=== PATIENT | female | born 1960 | race Caucasian/White ===

== ENCOUNTER 2016-03-17 15:15 | Emergency (ER) | payer OTHER ==
[2016-03-17 15:30] VITALS: TEMP 98.2; BMI 30.5
[2016-03-17 15:59] LABS: BLOOD UREA NITROGEN 15 MG/DL (7-17); CALC CORRECTED 9.2 MG/DL (8.4-10.2); CALCIUM 9.1 MG/DL (8.4-10.2); CALCULATED OSMOLALITY 266 MOs/Kg (270-290); CHLORIDE 99 mEq/L (98-107); GLUCOSE 195 MG/DL (70-99); SODIUM LEVEL 135 mEq/L (137-146); TOTAL PROTEIN 7.2 G/DL (6.3-8.2)
[2016-03-17 16:09] LABS: LEUKOCYTES/URINE NEG (NEGATIVE); NITRITE/URINE NEG (NEGATIVE); RBC/URINE 0-2 (0-5); URINE OCCULT BLOOD NEG (NEG/TRACE); WBC/URINE 0-2 (0-5)
[2016-03-17 17:00] LABS: AUTOMATED EOSINOPHIL 4.5 % (0-5); MPV 8.3 fL (7.4-10.4)
[2016-03-17 17:02] LABS: AUTOMATED BASOPHIL 0.6 % (0-2); AUTOMATED LYMPH 40.5 % (17-44); AUTOMATED MONOCYTE 6.5 % (3-10); AUTOMATED NEUTROPHIL 47.9 % (45-76)
--- NOTE | 2016-03-17 17:21 | EDPRACDOC ---
<Brigitte Rojas N - Last Filed: 03/17/16 17:56> - General Information Information Source: Patient - History of Present Illness Onset: YESTERDAY Exact Onset of Symptoms: Unknown HPI: PT PRESENTS TODAY STATING SUDDEN ONSET OF DIZZINESS AND LAW THAT BEGAN YESTERDAY. PT STATES SHE "JUST DIDN'T FEEL RIGHT". PT STATES THAT TODAY SHE WENT TO WORK AND WAS UNABLE TO "GET ALL MY WORDS OUT, LIKE I KNEW WHAT THINGS WERE CALLED BUT I COULDN'T GET IT OUT". STATES SHE "JUST DOESN'T FEEL LIKE HERSELF". MILD LAW. DENIES FEVER, BLURRED VISION, CP, SHOB, ABD PAIN, N/V/D, DYSURIA. NO APPARENT DISTRESS. Symptoms Started: Reports: Suddenly Symptoms Description: Constant Symptoms: Reports: Difficult speech, Imbalance, Vertigo Symptom Severity: Reports: Unable to performs ADL's Associated signs and symptoms:: Reports: Headache <OsvaldoFlor K - Last Filed: 03/17/16 18:06> - General Information Chief Complaint: Neuro Symptoms/Deficits Stated Complaint: DIZZY; CONFUSION Time Seen by Provider: 03/17/16 16:16 Home Medications: Home Medications Primidone 250 mg PO BID 01/25/13 Roflumilast [Daliresp] 500 mcg PO QAM 01/25/13 Losartan Potassium [Cozaar] 100 mg PO HS 03/06/14 Paroxetine HCl [Paxil] 30 mg PO HS 05/26/14 Clonazepam [Klonopin] 1 mg PO BID PRN 05/27/14 Atorvastatin Calcium [Lipitor] 10 mg PO HS 06/07/14 Biotin 10 mg PO DAILY 06/26/14 Cetirizine HCl [Zyrtec] 10 mg PO HS 06/26/14 Multivitamin [Multiple Vitamins] 1 tab PO DAILY 06/26/14 Albuterol Sulfate [Proair Hfa] 2 puff INH Q4H PRN 10/12/14 L.acidoph & Paracasei,B.lactis [Probiotic] 1 cap PO DAILY 10/12/14 Mometasone/Formoterol [Dulera 100 Mcg/5 Mcg Inhaler] 2 puff IH BID 10/12/14 Pantoprazole Sodium [Protonix] 40 mg PO BID #60 tab 10/12/14 Calcium Carbonate [Calcium] 1,200 mg PO DAILY 07/29/15 Cyclobenzaprine HCl [Flexeril] 10 mg PO TID PRN #20 tablet 07/29/15 Insulin Pump Novolog 0 - 65 units SQ .CONTINUOUS 07/29/15 Methocarbamol [Robaxin] 500 mg PO TID PRN 07/29/15 Sumatriptan Succinate [Imitrex] 100 mg PO . DIR PRN 07/29/15 Tramadol HCl [Ultram] 50 mg PO .Q8HRS PRN 07/29/15 Amlodipine [Norvasc] 5 mg PO DAILY 08/05/15 Butalb/Acetamin/Caffeine [Fioricet] 1 each PO Q4-6H #30 tab 03/17/16 Allergies/Adverse Reactions: Allergies Allergy/AdvReac Type Severity Reaction Status Date / Time Cephalosporins Allergy Severe Hives* Verified 08/17/15 06:21 moxifloxacin HCl Allergy Intermediate See Verified 08/17/15 06:21 [From Avelox] Comments adhesive tape Allergy Rash-Locali Verified 08/17/15 06:48 zed ED Past Medical History - History Reviewed Yes Nurses notes reviewed and agree except as marked - Patient Medical History Cardiac History: Reports: Hypertension, Cardiac Catheterization (1995), Hypercholesterolemia. Denies: Coronary Artery Disease Respiratory History: Reports: Asthma GI/ History: Reports: Kidney Stones, Gastroesophageal Reflux, Diverticulosis Musculoskeletal History: Reports: Arthritis (osteo), Osteoarthritis Psychological History: Reports: Anxiety. Denies: Depression, Substance Use Disorder Systemic History: Reports: Diabetes Surgical History: Reports: Cholecystectomy, Cardiac Catheterization (1995), Tonsillectomy/Adnoidectomy, Other () - Family Medical History Reports: Hypertension (maternal grandfather), Diabetes (father), Cardiac Disorders (maternal grandparents with mature onset coronary artery disease.). Denies: Cancer, Stroke - Social Medical History Smoking Status: Former smoker Social History: Denies: Substance Use Disorder <Flor Riley - Last Filed: 03/17/16 18:06> EDM Review of Systems - Review of Systems ROS Negative Except as Marked: Yes All systems reviewed and were negative except as marked Constitutional: No Symptoms Reported Eyes: No Symptoms Reported Ears: No Symptoms Reported Throat: No Symptoms Reported Nose: No Symptoms Reported Respiratory: No Symptoms Reported Cardiovascular: No Symptoms Reported Gastrointestinal: No Symptoms Reported Genitourinary: No Symptoms Reported Neurological: Dizziness, Headache, Speech Difficulty, Mood Changes Musculoskeletal: No Symptoms Reported Integumentary: No Symptoms Reported <Flor Riley - Last Filed: 03/17/16 18:06> - Physical Exam Last recorded Vital Signs: Last Vital Signs Temp 98.2 F 03/17/16 15:27 Pulse 94 03/17/16 16:10 Resp 18 03/17/16 16:10 BP 186/88 H 03/17/16 16:10 Pulse Ox 96 03/17/16 16:10 Oxygen Pulse Oxygen Saturation 96 O2 Device Room Air Oxygen Flow Rate Fraction of Inspired Oxygen ( FIO2) <RojasBrigitte henderson Lauro - Last Filed: 03/17/16 17:56> - Physical Exam Constitutional: Alert (Awake), No apparent distress Oriented to: Time, Person, Place Last recorded Vital Signs: Last Vital Signs Temp 98.2 F 03/17/16 15:27 Pulse 94 03/17/16 16:10 Resp 18 03/17/16 16:10 BP 186/88 H 03/17/16 16:10 Pulse Ox 96 03/17/16 16:10 Oxygen Pulse Oxygen Saturation 96 O2 Device Room Air Oxygen Flow Rate Fraction of Inspired Oxygen ( FIO2) - HEENT Head: Normal Eye Exam: Normal (PERRL; EOMI; RED REFLEX NOTED; NO NYSTAGMUS) Oropharynx: Normal Tympanic Membrane: Normal ENT EAC: Normal Nose: No Symptoms Reported Neck: Normal, Denies Pain, Midline - Respiratory/Cardiovascular Respiratory: Normal - CTA Cardiovascular: Normal - GI Palpation: Normal Tenderness: Non tender - Musculoskeletal Back: Normal Extremities: Normal - Integumentary Skin: Normal Lymphatics: Normal - Neurologic Cerebellar: Normal Mood Description: Normal Thought: Coherent Perception: Normal <Flor Riley - Last Filed: 03/17/16 18:06> - Results 03/17/16 16:50 03/17/16 15:30 WBC 8.0 xk/uL (3.8-10.8) 03/17/16 16:50 RBC 4.29 xM/uL (4.20-5.40) 03/17/16 16:50 Hgb 13.3 g/dL (12.0-16.0) 03/17/16 16:50 Hct 39.2 % (36-47) 03/17/16 16:50 MCV 91 fL (81-99) 03/17/16 16:50 MCH 30.9 pg (27-32) 03/17/16 16:50 MCHC 33.8 g/dl (33-36) 03/17/16 16:50 RDW 12.9 % (11.5-14.5) 03/17/16 16:50 Plt Count 270 xk/uL (130-400) 03/17/16 16:50 MPV 8.3 fL (7.4-10.4) 03/17/16 16:50 Neut % (Auto) 47.9 % (45-76) 03/17/16 16:50 Lymph % (Auto) 40.5 % (17-44) 03/17/16 16:50 [place] % (Auto) 6.5 % (3-10) 03/17/16 16:50 Eos % (Auto) 4.5 % (0-5) 03/17/16 16:50 Baso % (Auto) 0.6 % (0-2) 03/17/16 16:50 Absolute Neuts (auto) 3.76 xk/uL (1.7-8.2) 03/17/16 16:50 Absolute Lymphs (auto) 3.20 xk/uL (0.65-4.75) 03/17/16 16:50 Sodium 135 mEq/L (137-146) L 03/17/16 15:30 Potassium 4.5 mEq/L (3.5-5.1) 03/17/16 15:30 Chloride 99 mEq/L (98-107) 03/17/16 15:30 Carbon Dioxide 27 mMOL/L (22-33) 03/17/16 15:30 Anion Gap 14 mEq/L (8-16) 03/17/16 15:30 BUN 15 MG/DL (7-17) 03/17/16 15:30 Creatinine 0.70 MG/DL (0.52-1.04) 03/17/16 15:30 Estimated GFR (MDRD) > 60 mL/min (>=60) 03/17/16 15:30 Glucose 195 MG/DL (70-99) H 03/17/16 15:30 Calculated Osmolality 266 MOs/Kg (270-290) L 03/17/16 15:30 Calcium 9.1 MG/DL (8.4-10.2) 03/17/16 15:30 Corrected Calcium 9.2 MG/DL (8.4-10.2) 03/17/16 15:30 Total Bilirubin 0.6 MG/DL (0.2-1.3) 03/17/16 15:30 AST 34 IU/L (14-36) 03/17/16 15:30 ALT 30 IU/L (9-52) 03/17/16 15:30 Alkaline Phosphatase 129 IU/L (38-126) H 03/17/16 15:30 Total Protein 7.2 G/DL (6.3-8.2) 03/17/16 15:30 Albumin 3.9 G/DL (3.5-5.0) 03/17/16 15:30 Free T4 1.04 ng/dL (0.78-2.19) 03/17/16 15:30 Free T3 3.71 pg/mL (2.77-5.27) 03/17/16 15:30 Urine Color Yellow 03/17/16 15:30 Urine Clarity Clear 03/17/16 15:30 Urine pH 5.0 (5.0-8.0) 03/17/16 15:30 Ur Specific [place] 1.010 (1.003-1.035) 03/17/16 15:30 Urine Protein Neg (NEG/TRACE) 03/17/16 15:30 Urine Glucose (UA) Trace (NEGATIVE) 03/17/16 15:30 Urine Ketones Neg (NEGATIVE) 03/17/16 15:30 Urine Occult Blood Neg (NEG/TRACE) 03/17/16 15:30 Urine Nitrite Neg (NEGATIVE) 03/17/16 15:30 Urine Bilirubin Neg (NEGATIVE) 03/17/16 15:30 Urine Urobilinogen <2.0 MG/DL (0-1) 03/17/16 15:30 Ur Leukocyte Esterase Neg (NEGATIVE) 03/17/16 15:30 Urine RBC 0-2 (0-5) 03/17/16 15:30 Urine WBC 0-2 (0-5) 03/17/16 15:30 Lab Results 03/17/16 03/17/16 03/17/16 16:50 15:30 15:30 WBC 8.0 RBC 4.29 Hgb 13.3 Hct 39.2 MCV 91 MCH 30.9 MCHC 33.8 RDW 12.9 Plt Count 270 MPV 8.3 Neut % (Auto) 47.9 Lymph % (Auto) 40.5 [place] % (Auto) 6.5 Eos % (Auto) 4.5 Baso % (Auto) 0.6 Absolute Neuts (auto) 3.76 Absolute Lymphs (auto) 3.20 Sodium Potassium Chloride Carbon Dioxide Anion Gap BUN Creatinine Estimated GFR (MDRD) Glucose Calculated Osmolality Calcium Corrected Calcium Total Bilirubin AST ALT Alkaline Phosphatase Total Protein Albumin Free T4 1.04 Free T3 3.71 Urine Color Yellow Urine Clarity Clear Urine pH 5.0 Ur Specific [place] 1.010 Urine Protein Neg Urine Glucose (UA) Trace Urine Ketones Neg Urine Occult Blood Neg Urine Nitrite Neg Urine Bilirubin Neg Urine Urobilinogen <2.0 Ur Leukocyte Esterase Neg Urine RBC 0-2 Urine WBC 0-2 03/17/16 15:30 WBC RBC Hgb Hct MCV MCH MCHC RDW Plt Count MPV Neut % (Auto) Lymph % (Auto) [place] % (Auto) Eos % (Auto) Baso % (Auto) Absolute Neuts (auto) Absolute Lymphs (auto) Sodium 135 L Potassium 4.5 Chloride 99 Carbon Dioxide 27 Anion Gap 14 BUN 15 Creatinine 0.70 Estimated GFR (MDRD) > 60 Glucose 195 H Calculated Osmolality 266 L Calcium 9.1 Corrected Calcium 9.2 Total Bilirubin 0.6 AST 34 ALT 30 Alkaline Phosphatase 129 H Total Protein 7.2 Albumin 3.9 Free T4 Free T3 Urine Color Urine Clarity Urine pH Ur Specific [place] Urine Protein Urine Glucose (UA) Urine Ketones Urine Occult Blood Urine Nitrite Urine Bilirubin Urine Urobilinogen Ur Leukocyte Esterase Urine RBC Urine WBC - Diagnostic Imaging Head Image interpreted by: Radiologist Patient Name: NICKY SCHROEDER LOC: ED : 1960 AGE: 55 Order Date:03/17/16 Date of Service:08/26 Report # [id number] Ord Physician: Brigitte Rojas MD Exam # [id number] Emergency Physician: Brigitte Rojas MD Exam(s): [id number] MRI/MRI HEAD W/O CM CLINICAL DATA: Expressive aphasia for 1 day. EXAM: MRI HEAD WITHOUT CONTRAST TECHNIQUE: Multiplanar, multiecho pulse sequences of the brain and surrounding structures were obtained without intravenous contrast. COMPARISON: Head CT 06/06/2015 FINDINGS: Calvarium and upper cervical spine: No focal marrow signal abnormality. Orbits: No significant findings. Sinuses and Mastoids: Probable mucous retention cysts in the bilateral maxillary sinus. Probable maxillary antrostomies which are patent. Mucosal thickening chronically seen in the left frontal sinus. Chronic sinus findings are stable from sinus CT 06/29/2015. Brain: No acute infarct, hemorrhage, hydrocephalus, or shift. No evidence of major vessel occlusion. Cerebral volume is normal. There are few FLAIR hyperintensities in the bilateral cerebral white matter, allowable for age. IMPRESSION: 1. No acute finding, including infarct. Unremarkable brain MRI for age. 2. Chronic sinusitis, stable from June [address] CT. Electronically Signed By: Brandon Bar M.D. On: 03/17/2016 17:38 Electronically Signed By: Zeeshan Bar MD Electronically Signed Date/Time: 741 Dictate Date/Time: 03/17/16 173 Technologist: Lisa Oquendo Transcribed By: Joseph Transcribed Date/Time: 03/17/16 1738 <Brigitte Rojas - Last Filed: 03/17/16 17:56> - Re-evaluation Re-evaluation 1 Re-evaluation Time: 18:03 PT RESTING. STATES SHE DOES FOLLOW A NEUROLOGIST IN [place] AND HAS BEEN DX WITH COMPLEX MIGRAINES. - Results 03/17/16 16:50 03/17/16 15:30 WBC 8.0 xk/uL (3.8-10.8) 03/17/16 16:50 RBC 4.29 xM/uL (4.20-5.40) 03/17/16 16:50 Hgb 13.3 g/dL (12.0-16.0) 03/17/16 16:50 Hct 39.2 % (36-47) 03/17/16 16:50 MCV 91 fL (81-99) 03/17/16 16:50 MCH 30.9 pg (27-32) 03/17/16 16:50 MCHC 33.8 g/dl (33-36) 03/17/16 16:50 RDW 12.9 % (11.5-14.5) 03/17/16 16:50 Plt Count 270 xk/uL (130-400) 03/17/16 16:50 MPV 8.3 fL (7.4-10.4) 03/17/16 16:50 Neut % (Auto) 47.9 % (45-76) 03/17/16 16:50 Lymph % (Auto) 40.5 % (17-44) 03/17/16 16:50 [place] % (Auto) 6.5 % (3-10) 03/17/16 16:50 Eos % (Auto) 4.5 % (0-5) 03/17/16 16:50 Baso % (Auto) 0.6 % (0-2) 03/17/16 16:50 Absolute Neuts (auto) 3.76 xk/uL (1.7-8.2) 03/17/16 16:50 Absolute Lymphs (auto) 3.20 xk/uL (0.65-4.75) 03/17/16 16:50 Sodium 135 mEq/L (137-146) L 03/17/16 15:30 Potassium 4.5 mEq/L (3.5-5.1) 03/17/16 15:30 Chloride 99 mEq/L (98-107) 03/17/16 15:30 Carbon Dioxide 27 mMOL/L (22-33) 03/17/16 15:30 Anion Gap 14 mEq/L (8-16) 03/17/16 15:30 BUN 15 MG/DL (7-17) 03/17/16 15:30 Creatinine 0.70 MG/DL (0.52-1.04) 03/17/16 15:30 Estimated GFR (MDRD) > 60 mL/min (>=60) 03/17/16 15:30 Glucose 195 MG/DL (70-99) H 03/17/16 15:30 Calculated Osmolality 266 MOs/Kg (270-290) L 03/17/16 15:30 Calcium 9.1 MG/DL (8.4-10.2) 03/17/16 15:30 Corrected Calcium 9.2 MG/DL (8.4-10.2) 03/17/16 15:30 Total Bilirubin 0.6 MG/DL (0.2-1.3) 03/17/16 15:30 AST 34 IU/L (14-36) 03/17/16 15:30 ALT 30 IU/L (9-52) 03/17/16 15:30 Alkaline Phosphatase 129 IU/L (38-126) H 03/17/16 15:30 Total Protein 7.2 G/DL (6.3-8.2) 03/17/16 15:30 Albumin 3.9 G/DL (3.5-5.0) 03/17/16 15:30 Urine Color Yellow 03/17/16 15:30 Urine Clarity Clear 03/17/16 15:30 Urine pH 5.0 (5.0-8.0) 03/17/16 15:30 Ur Specific [place] 1.010 (1.003-1.035) 03/17/16 15:30 Urine Protein Neg (NEG/TRACE) 03/17/16 15:30 Urine Glucose (UA) Trace (NEGATIVE) 03/17/16 15:30 Urine Ketones Neg (NEGATIVE) 03/17/16 15:30 Urine Occult Blood Neg (NEG/TRACE) 03/17/16 15:30 Urine Nitrite Neg (NEGATIVE) 03/17/16 15:30 Urine Bilirubin Neg (NEGATIVE) 03/17/16 15:30 Urine Urobilinogen <2.0 MG/DL (0-1) 03/17/16 15:30 Ur Leukocyte Esterase Neg (NEGATIVE) 03/17/16 15:30 Urine RBC 0-2 (0-5) 03/17/16 15:30 Urine WBC 0-2 (0-5) 03/17/16 15:30 Lab Results 03/17/16 03/17/16 03/17/16 16:50 15:30 15:30 WBC 8.0 RBC 4.29 Hgb 13.3 Hct 39.2 MCV 91 MCH 30.9 MCHC 33.8 RDW 12.9 Plt Count 270 MPV 8.3 Neut % (Auto) 47.9 Lymph % (Auto) 40.5 [place] % (Auto) 6.5 Eos % (Auto) 4.5 Baso % (Auto) 0.6 Absolute Neuts (auto) 3.76 Absolute Lymphs (auto) 3.20 Sodium 135 L Potassium 4.5 Chloride 99 Carbon Dioxide 27 Anion Gap 14 BUN 15 Creatinine 0.70 Estimated GFR (MDRD) > 60 Glucose 195 H Calculated Osmolality 266 L Calcium 9.1 Corrected Calcium 9.2 Total Bilirubin 0.6 AST 34 ALT 30 Alkaline Phosphatase 129 H Total Protein 7.2 Albumin 3.9 Urine Color Yellow Urine Clarity Clear Urine pH 5.0 Ur Specific [place] 1.010 Urine Protein Neg Urine Glucose (UA) Trace Urine Ketones Neg Urine Occult Blood Neg Urine Nitrite Neg Urine Bilirubin Neg Urine Urobilinogen <2.0 Ur Leukocyte Esterase Neg Urine RBC 0-2 Urine WBC 0-2 - EKG EKG #1 EKG Time: 15:39 -: Yes EKG interpreted by me Rate: bpm: 83 [place]: Normal Rhythm: NSR Block: None Hypertrophy: None ST: Normal - Additional Information OLD RECORDS REVIEWED. PT C/O SAME S/S WITH ALMOST EXACT SAME STORY TO ME 3 YEARS AGO; AND HAS HAD SAME S/S TO OTHER PROVIDERS. MULTIPLE CTS AND WORK UP HAVE BEEN NEGATIVE. I DO NOT SEE RECORD OF AN MRI. CASE DISCUSSED WITH DR. ROJAS AND WILL ORDER MRI. <Flor Riley - Last Filed: 03/17/16 18:06> <Brigitte Rojas - Last Filed: 03/17/16 17:56> Decision Time to Discharge: 18:03 - Departure Disposition: Home Education/Counseling Given To: Patient Education/Counseling Given Regarding: Diagnosis, Treatment, Follow Up <Flor Riley - Last Filed: 03/17/16 18:06> - Departure Condition: Good Final Diagnosis: COMPLEX MIGRAINE Instructions: Migraine Headache (ED) Referrals: None,No Provider [Primary Care Provider] - One Week Prescriptions: Butalb/Acetamin/Caffeine [Fioricet] 1 each PO Q4-6H #30 tab Additional Instructions: CONTINUE FOLLOW UP WITH PCP AND NEURO.
[2016-03-17 17:41] LABS: FREE T3 3.71 pg/mL (2.77-5.27); FREE T4 1.04 ng/dL (0.78-2.19)
--- NOTE | 2016-03-17 17:41 | DIRPT ---
CLINICAL DATA: Expressive aphasia for 1 day. EXAM: MRI HEAD WITHOUT CONTRAST TECHNIQUE: Multiplanar, multiecho pulse sequences of the brain and surrounding structures were obtained without intravenous contrast. COMPARISON: Head CT 06/06/2015 FINDINGS: Calvarium and upper cervical spine: No focal marrow signal abnormality. Orbits: No significant findings. Sinuses and Mastoids: Probable mucous retention cysts in the bilateral maxillary sinus. Probable maxillary antrostomies which are patent. Mucosal thickening chronically seen in the left frontal sinus. Chronic sinus findings are stable from sinus CT 06/29/2015. Brain: No acute infarct, hemorrhage, hydrocephalus, or shift. No evidence of major vessel occlusion. Cerebral volume is normal. There are few FLAIR hyperintensities in the bilateral cerebral white matter, allowable for age. IMPRESSION: 1. No acute finding, including infarct. Unremarkable brain MRI for age. 2. Chronic sinusitis, stable from June 2015 CT. Electronically Signed By: Brandon Bar M.D. On: 03/17/2016 17:38
[2016-03-17 17:55] LABS: hTSH 2.57 uIU/mL (0.5-4.67)
[2016-03-17 18:37] VITALS: BP 119/78; PULSE 79
== END 2016-03-17 18:36 | disposition home or self-care (01) ==
LOC: ED 15:15
DX: G43.909 Migraine, unspecified, not intractable, without status migrainosus (principal)
CPT/HCPCS: 36415; 70551; 80053; 81001; 84439; 84443; 84481; 85025; 93005; 99284